=== PATIENT | female | born 1955 | race Caucasian/White ===

== ENCOUNTER 2018-06-18 10:43 | Outpatient (CLI) | payer BC | END 2018-06-18 10:44 | disposition home or self-care (01) | LOC: BICMAMMO 10:43 | PROVIDERS: ATTEND Family Medicine | DX: Z12.31 Encounter for screening mammogram for malignant neoplasm of breast (principal); R92.1 Mammographic calcification found on diagnostic imaging of breast; Z80.3 Family history of malignant neoplasm of breast | CPT/HCPCS: 77063; 77067 ==

== ENCOUNTER 2019-06-13 09:23 | Outpatient (CLI) | payer OTHER ==
--- NOTE | 2019-06-13 10:01 | MMO ---
Bilateral MAMMO Bilat Screen [facility]. CLINICAL HISTORY: Patient is 64 years old and is seen for screening. The patient has no personal history of cancer. VIEWS: The views performed were: bilateral craniocaudal with tomosynthesis and bilateral mediolateral oblique with tomosynthesis. FILMS COMPARED: The present examination has been compared to prior imaging studies performed at [facility] on 04/02/2015, 05/11/2016 and 06/18/2018, and at [facility] on 01/27/2014. MAMMOGRAM FINDINGS: The breasts are heterogeneously dense, which could obscure a lesion on mammography. There are no suspicious masses, calcifications or areas of architectural distortion. There are benign appearing calcifications in the left breast. There are no suspicious masses, suspicious calcifications, or new areas of architectural distortion. IMPRESSION: THERE IS NO MAMMOGRAPHIC EVIDENCE OF MALIGNANCY. A ROUTINE FOLLOW-UP MAMMOGRAM IN 1 YEAR IS RECOMMENDED. THE RESULTS OF THIS EXAM WERE SENT TO THE PATIENT. ACR BI-RADS Category 2 - Benign finding MAMMOGRAPHY NOTE: 1. A negative mammogram report should not delay a biopsy if a dominant of clinically suspicious mass is present. 2. Approximately 10% to 15% of breast cancers are not detected by mammography. 3. Adenosis and dense breasts may obscure an underlying neoplasm. Reported by: CARLENE KUMAR MD Electonically Signed: [id number]
--- NOTE | 2019-06-13 11:14 | BD ---
DEXA BONE MINERAL DENSITOMETRY EXAM, DENSITOMETRY: INDICATION: Postmenopausal osteoporosis screening. Lumbar Spine: BMD (g/cm2) L1 0.770 T-Score: -2.0 L2 0.803 T-Score: -2.0 L3 0.889 T-Score: -1.8 L4 0.955 T-Score: -1.0 L1-L4 0.857 T-Score: -1.7 Total lumbar density: 01/27/2014: 0.856 12/23/2010: 0.880 09/14/2005: 0.884 Femoral Neck: 0.647 T-Score: -1.8 Total Femur: 0.857 T-Score: -0.7 Total femur density: 01/27/2014: 0.853 12/23/2010: 0.752 09/14/2005: 0.740 Impression: Bone mineral density of lumbar spine and femoral neck both indicate osteopenia. Ten-year fracture risk: Major osteoporotic fracture: 8.7%. Hip fracture: 1.3%. POS: [facility]
== END 2019-06-13 09:24 | disposition home or self-care (01) ==
LOC: BICMAMMO 09:23
PROVIDERS: ATTEND Family Medicine
DX: Z12.31 Encounter for screening mammogram for malignant neoplasm of breast (principal); Z13.820 Encounter for screening for osteoporosis; M85.89 Other specified disorders of bone density and structure, multiple sites
CPT/HCPCS: 77063; 77067; 77080

== ENCOUNTER 2019-06-17 07:42 | Day surgery (SDC) | payer OTHER ==
[2019-06-12 17:04] LABS: Hemoglobin 13.1 g/dL (12.0-16.0); Mean Corpuscular HGB CONC 33.7 g/dL (32.0-36.0); Mean Corpuscular Hemoglobin 31.3 pg (27.0-31.0); Mean Corpuscular Volume 92.8 fL (78.0-98.0); Mean Platelet Volume 6.4 fL (7.4-10.4); Platelet Count 284 thou/uL (130-400); RBC Distribution Width 12.1 % (11.5-14.5); White Blood Cell (WBC) Count 7.2 thou/uL (4.8-10.8)
--- NOTE | 2019-06-12 20:33 | HP ---
She is scheduled for surgery on June 17. HISTORY OF PRESENT ILLNESS: Ms. Cole is a 64-year-old white female, G1, P1, prior hysterectomy, who has issues with pelvic prolapse symptoms. She is feeling a bulge in her vagina and is having difficulty emptying her bladder. She also has significant urge incontinence. She is on both Myrbetriq 25 mg daily and Detrol 4 mg daily. She has urinary incontinence, where she gets urge and she cannot control urine loss despite these medications. Her symptoms have improved on the medications, but still a daily bothersome thing is requiring use of pad. She does have discomfort in the vagina related to her prolapse and is desiring repair of this. Due to the incontinent symptoms, a repeat urine culture was obtained on 05/15/2019, which was negative along with a negative UA. She did undergo formal urodynamics testing in my office on 06/12, which showed her to have an elevated postvoid residual of 120 mL. Her first sensation to void was 78 mL, second sensation 111 mL, and third sensation 132 mL. The patient had spontaneous leakage of urine of 135 mL and was unable to control any more of her bladder flow. Her urethral pressure profile measured 38 and 42 mm. PAST MEDICAL HISTORY: Prior hyperthyroidism, treated, now with hypothyroidism. She has acid reflux; as noted, overactive bladder with urinary incontinence; and chronic constipation. PAST SURGICAL HISTORY: Cataract surgery and total hysterectomy. FAMILY HISTORY: Breast cancer in mother and a sister. SOCIAL HISTORY: She is a nonsmoker. No excessive alcohol use or drug use. CURRENT MEDICATIONS: 1. Caltrate. 2. Vitamin D. 3. Aspirin 81 mg daily. 4. Ellura. 5. Levothyroxine 50 mcg daily. 6. Tolterodine ER 4 mg tablet daily. 7. Linzess capsule daily for chronic constipation. 8. Estradiol 1 mg tablet daily. 9. Ranitidine 300 mg tablet at bedtime. 10. Omeprazole 40 mg tablet q.a.m. 11. Naprosyn 500 mg tablet daily for arthritis. OB HISTORY: One spontaneous vaginal delivery. PHYSICAL EXAMINATION: VITAL SIGNS: Height 5 feet 1 inch, weight 108, BMI 20.4, blood pressure 120/80, pulse 82, respirations 18, O2 saturation on room air 98%. HEENT: Within normal limits. CHEST: Clear to auscultation. HEART: Regular rate and rhythm. S1 and S2 heart sounds. no murmurs, rubs, or gallops. ABDOMEN: Soft, nontender, and nondistended with no palpable masses. PELVIC: Vulva and vagina had no lesions. Bladder and urethra; the urethral meatus had no abnormal mass or discharge seen. The vaginal vault showed anterior cystocele, grade 2 and posterior rectocele, grade 2. Cervix and uterus were surgically absent. Adnexa were nontender with no masses. ASSESSMENT: This is a 64-year-old white female, prior hysterectomy with overactive bladder and urinary incontinence. She has symptomatic grade 2 cystocele and rectocele, desiring surgical repair. Current urodynamic studies did not reveal significant stress incontinence component to her urinary incontinence. PLAN: Anterior and posterior repair and then consider referral to Urology once the patient recovers from her anterior and posterior repair for possible InterStim therapy for the overactive/urge incontinence versus Botox injections. Job ID: [id number]
[2019-06-17] MEDS ORDERED: Lidocaine 1% w/Epinephrine 1:100K 20 ML VIAL ONE (07:52)
[2019-06-17] MEDS ORDERED: Fentanyl 100 MCG/2 ML VIAL ONE ×4 (10:25→14:36)
[2019-06-17] MEDS ORDERED: traMADol HCl 50 MG TAB PO PRN ×2 (11:53)
[2019-06-17] MEDS ORDERED: Morphine 2 MG/ML SYRINGE SLOW IVP PRN (11:53)
[2019-06-17] MEDS ORDERED: Acetaminophen 325 MG TAB PO PRN (11:53)
[2019-06-17] MEDS ORDERED: diphenhydrAMINE 25 MG CAP PO PRN (11:55)
[2019-06-17] MEDS ORDERED: Ondansetron PF 4 MG/2 ML Vial IVP PRN (11:55)
[2019-06-17] MEDS ORDERED: Bisacodyl 10 MG SUPP PR PRN (11:55)
[2019-06-17] MEDS ORDERED: Simethicone Chewable 80 MG TAB PO PRN (11:55)
[2019-06-17] MEDS ORDERED: Promethazine HCl 25 MG/ML VIAL IM PRN (11:55)
[2019-06-17] MEDS ORDERED: Promethazine HCl 25 MG/ML VIAL IM/IV PRN (12:48)
[2019-06-17] MEDS ORDERED: Ondansetron HCl/PF 4 MG/2 ML Vial IVP PRN (12:48)
[2019-06-17] MEDS ORDERED: Non-Formulary Medication 1 EACH PO PRN (12:48)
--- NOTE | 2019-06-17 16:14 | OP ---
DATE OF PROCEDURE: 06/17/2019 PREOPERATIVE DIAGNOSIS: A 64-year-old white female with prior hysterectomy with symptomatic grade 2 cystocele and rectocele. POSTOPERATIVE DIAGNOSIS: A 64-year-old white female with prior hysterectomy with symptomatic grade 2 cystocele and rectocele. PROCEDURE PERFORMED: Anterior and posterior repair. MEMORY CARE PROGRAM DIRECTOR SURGEON: Rosi Le PA-C. ANESTHESIA: General. ESTIMATED BLOOD LOSS: Less than 25 mL. COMPLICATIONS: None. COUNTS: Correct x2. ANTIBIOTICS: 2 g Ancef, on-call to OR. PATHOLOGY: None. FINDINGS: 1. Postoperatively, clear urine present in Kincaid catheter. 2. Postoperative rectal exam showed no evidence of any inadvertent suture placement through the rectal mucosa. 3. Cystocele and rectocele appeared well reduced postprocedure. DISPOSITION: Recovery room then to the floor for overnight stay. DESCRIPTION OF PROCEDURE: The patient previously received informed consent in regard to surgery. She was taken back to the operating room, where she received a general anesthetic agent without complications. She was placed in the dorsal lithotomy position with the use of candy-cane stirrups. A Kincaid catheter was placed during the prep process. The patient had been draped in usual sterile fashion. A weighted speculum was placed in the vagina. The anterior vagina was inspected with the cystocele defect noted. The cuff angles were grasped with 2 Allis clamps. The anterior vaginal mucosa was infiltrated 1% lidocaine with epinephrine. A vertical midline incision of the anterior vaginal mucosa was made with Metzenbaum scissors. It was undermined submucosally to approximately 1.5 cm from the meatus. The edges of the mucosa on each side having grasped with Allis clamps for counter traction. The endopelvic fascia was then dissected sharply and bluntly reducing the cystocele in its entirety. Then, 2-0 Vicryl sutures were utilized to plicate the endopelvic fascia, reducing the cystocele defect with interrupted [id number]-[id number] stitches. This started most cephalad and then worked caudally towards the vaginal cuff angle. The anterior vaginal mucosa was then closed with interrupted bvfnzi-su-gnwcr suture of 2-0 Vicryl encompassing some of the endopelvic fascia to rid the space. Hemostasis was assured. The posterior fat repair was then carried out. Two Allis clamps were placed at 4 and 8 o'clock position in the vaginal introitus. The perineal body appeared well preserved. The posterior vaginal mucosa was infiltrated with 1% lidocaine with epinephrine. Again, a vertical midline incision was made with Metzenbaum scissors and this was carried up to the vaginal cuff line and upper vagina. The edges of the posterior vaginal mucosa again were grasped with Allis clamps to help with retraction and counter traction. The endopelvic fascia with the rectocele defect was then sharply dissected and bluntly reduced to its entirety. The upper apex of the vaginal mucosa along with the endopelvic fascia was tagged with a 2-0 Vicryl suture, and then this was tagged with the hemostat. I then proceeded to plicate the endopelvic fascia starting most proximally in the upper vagina, reinforcing this and plicating it with 0 Vicryl sutures with varkua-wo-xwnif stitch fashion. Continue to work toward the opening the vaginal introitus plicating the endopelvic fascia in the midline, reducing the rectocele defect. Once this had been completely reduced, the posterior vaginal mucosa was then closed with 2-0 Vicryl sutures. This was carried down in a fqauzu-sv-nxayd stitch fashion incorporating again some of the endopelvic fascia to rid the space. The edges of the excess vaginal mucosa were trimmed loosely work towards the opening of the introitus, and this was all plicated down and closed for hemostasis. A rectal exam was performed and confirmed inadvertent sutures had been placed through the rectal mucosa. A moistened Kerlix was packed into the vagina for added hemostasis. Clear urine was noted to be draining from the Kincaid catheter. The patient was awakened from anesthesia, transferred to Recovery in stable condition. Job ID: [id number]
[2019-06-17 16:24] VITALS: BMI 19.6
[2019-06-17] MEDS ORDERED: PROPOFOL 200 MG/20 ML VIAL ONE (17:34)
[2019-06-17] MEDS ORDERED: Dexamethasone 20 MG/5 ML VIAL ONE (17:34)
[2019-06-17] MEDS ORDERED: Lidocaine 1% PF 5 ML VIAL ONE (17:34)
[2019-06-17] MEDS ORDERED: Naloxone HCl 0.4 mg/ml Vial ONE (17:34)
[2019-06-17] MEDS ORDERED: Ondansetron PF 4 MG/2 ML Vial ONE (17:34)
[2019-06-17] MEDS ORDERED: Sodium Chloride 0.9% 10 ML ONE (17:59)
[2019-06-17] MEDS: Ketorolac Tromethamine 30 MG/ML VIAL IVP SCH (18:05)
[2019-06-17] MEDS ORDERED: CRANBERRY FRUIT EXTRACT 200 MG PO SCH (21:00)
[2019-06-17] MEDS: Trospium 20 MG TAB PO SCH (21:00)
[2019-06-17] MEDS ORDERED: Famotidine 20 MG TAB PO SCH (21:00)
[2019-06-17] MEDS: Docusate Calcium (SURFAK) 240 MG CAP PO SCH (21:54)
[2019-06-18] MEDS: Ketorolac Tromethamine 30 MG/ML VIAL IVP SCH ×3 (00:36→12:25)
[2019-06-18 04:23] LABS: Hemoglobin 11.6 g/dL (12.0-16.0); Mean Corpuscular HGB CONC 32.9 g/dL (32.0-36.0); Mean Corpuscular Hemoglobin 30.9 pg (27.0-31.0); Mean Corpuscular Volume 94.1 fL (78.0-98.0); Mean Platelet Volume 6.3 fL (7.4-10.4); Platelet Count 254 thou/uL (130-400); RBC Distribution Width 12.2 % (11.5-14.5); Red Blood Cell (RBC) Count 3.76 mill/uL (4.20-5.40); White Blood Cell (WBC) Count 7.1 thou/uL (4.8-10.8)
[2019-06-18] MEDS ORDERED: Levothyroxine Sodium 50 MCG TAB PO SCH (06:00)
[2019-06-18] MEDS ORDERED: Linaclotide [Linzess] 145 MCG PO SCH (09:00)
[2019-06-18] MEDS ORDERED: Magnesium Oxide 250 MG TAB PO SCH (09:00)
[2019-06-18] MEDS ORDERED: Calcium Carbonate 600 MG TAB PO SCH (09:00)
[2019-06-18] MEDS ORDERED: Multivitamin W/ Minerals 1 TAB PO SCH (09:00)
[2019-06-18] MEDS ORDERED: Minocycline HCl 50 MG CAP PO SCH (09:00)
[2019-06-18] MEDS ORDERED: Fish Oil 1,000 MG CAP PO SCH (09:00)
[2019-06-18] MEDS ORDERED: Estradiol 1 MG TAB PO SCH (09:00)
[2019-06-18] MEDS: Docusate Calcium (SURFAK) 240 MG CAP PO SCH (09:09)
[2019-06-18] MEDS: Trospium 20 MG TAB PO SCH (09:10)
[2019-06-18 11:52] VITALS: BP 111/52; TEMP 98.4
[2019-06-18] MEDS ORDERED: Ibuprofen 800 MG TAB PO SCH (21:00)
--- NOTE | 2019-06-19 04:54 | DIS ---
DATE OF ADMISSION: 06/17/2019 DATE OF DISCHARGE: 06/18/2019 DIAGNOSES: Symptomatic grade 2 cystocele and grade 3 rectocele. Her comorbid history is urge incontinence. PROCEDURE PERFORMED: Anterior and posterior repair. SUMMARY OF HOSPITAL COURSE: Ms. Cole is a 64-year-old white female, prior hysterectomy use, chronic urge incontinence with also noticing pelvic floor dysfunction with symptomatic cystocele and rectocele. She underwent anterior and posterior repair on 06/17/2019. Postoperatively, the patient has progressed well. Her vital signs have remained stable. Her hematocrit was 34.5% this morning. She began voiding trials which were adequate voids with minimal PVRs of less than 50 mL on several checks. Her pain control has been adequate with IV Toradol and tolerating a regular diet. She was discharged afternoon of postop day #1. DISCHARGE MEDICATIONS: Ozff-fyu-pvillni ibuprofen 400-600 mg q.6 hours p.r.n. pain, tramadol 50 mg q.6 hours p.r.n. severe pain. She is also instructed on a bowel regimen to avoid constipation with twice daily docusate sodium 100 mg b.i.d., which she can find [id number]-moz-rupsgam and also p.r.n. milk of magnesia. She has a scheduled followup in 2 and 6 weeks postoperatively. She is to resume her maintenance medications and also her medications for her overactive urge incontinence, which include Myrbetriq 25 mg daily along with Toviaz 4 mg daily. Job ID: [id number]
== END 2019-06-18 14:35 | disposition home or self-care (01) ==
LOC: SDC 07:42 → 3SE 11:53 → EDSTATUS 16:15 → SDC 06-18 14:35
PROVIDERS: ATTEND Obstetrics & Gynecology
PROC: 0JQC0ZZ Repair Pelvic Region Subcutaneous Tissue and Fascia, Open Approach (ICD-10-PCS; principal; 2019-06-18)
DX: N81.10 Cystocele, unspecified (principal); N81.6 Rectocele; N32.81 Overactive bladder; N39.41 Urge incontinence; K59.09 Other constipation; E03.9 Hypothyroidism, unspecified; K21.9 Gastro-esophageal reflux disease without esophagitis; M19.90 Unspecified osteoarthritis, unspecified site; Z79.82 Long term (current) use of aspirin; Z79.899 Other long term (current) drug therapy; Z88.2 Allergy status to sulfonamides
CPT/HCPCS: 36415; 85027; 86850; 86900; 86901; J0690; J1100; J1885; J2001; J2310; J2405; J2704; J3010

== ENCOUNTER 2020-07-22 15:21 | Outpatient (CLI) | payer BC ==
--- NOTE | 2020-07-22 15:56 | MMO ---
Bilateral MAMMO Bilat Screen [facility]. CLINICAL HISTORY: Patient is 65 years old and is seen for screening. The patient has the following family history of breast cancer: sister, at age 56, malignant (generic) and maternal aunt, malignant (generic). The patient has no personal history of cancer. VIEWS: The views performed were: bilateral craniocaudal with tomosynthesis and bilateral mediolateral oblique with tomosynthesis. FILMS COMPARED: The present examination has been compared to prior imaging studies performed at [facility] on 04/02/2015, 05/11/2016, 06/18/2018 and 06/13/2019. This study has been interpreted with the assistance of computer-aided detection. MAMMOGRAM FINDINGS: The breasts are heterogeneously dense, which could obscure a lesion on mammography. There are stable benign appearing calcifications seen in both breasts. There are no suspicious masses, suspicious calcifications, or new areas of architectural distortion. IMPRESSION: THERE IS NO MAMMOGRAPHIC EVIDENCE OF MALIGNANCY. A ROUTINE FOLLOW-UP MAMMOGRAM IN 1 YEAR IS RECOMMENDED. THE RESULTS OF THIS EXAM WERE SENT TO THE PATIENT. ACR BI-RADS Category 2 - Benign finding MAMMOGRAPHY NOTE: 1. A negative mammogram report should not delay a biopsy if a dominant of clinically suspicious mass is present. 2. Approximately 10% to 15% of breast cancers are not detected by mammography. 3. Adenosis and dense breasts may obscure an underlying neoplasm. Reported by: LYDIA TATUM MD Electonically Signed: [id number]
== END 2020-07-22 15:22 | disposition home or self-care (01) ==
LOC: BICMAMMO 15:21
PROVIDERS: ATTEND Family Medicine
DX: Z12.31 Encounter for screening mammogram for malignant neoplasm of breast (principal); Z80.3 Family history of malignant neoplasm of breast
CPT/HCPCS: 77063; 77067

== ENCOUNTER 2021-08-08 15:06 | Outpatient (CLI) | payer MEDICARE | END 2021-08-08 15:07 | disposition home or self-care (01) | LOC: BICMAMMO 15:06 | PROVIDERS: ATTEND Family Medicine | DX: Z12.31 Encounter for screening mammogram for malignant neoplasm of breast (principal); M85.89 Other specified disorders of bone density and structure, multiple sites; Z80.3 Family history of malignant neoplasm of breast | CPT/HCPCS: 77063; 77067; 77080 ==

== ENCOUNTER 2025-07-27 14:05 | Outpatient (CLI) | payer MEDICARE | END 2025-07-27 14:06 | disposition home or self-care (01) | LOC: SCSBT 14:05 | PROVIDERS: ATTEND Family Medicine | DX: M85.89 Other specified disorders of bone density and structure, multiple sites (principal) | CPT/HCPCS: 77080 ==